=== PATIENT | female | born 1990 | race African-American/Black ===

== ENCOUNTER 2024-03-02 00:31 | Emergency (ER) | payer OTHER, SELFPAY ==
[2024-03-02 00:44] VITALS: BP 124/86; PULSE 104; RESP 15; TEMP 36.7; O2SAT 97
[2024-03-02 01:01] LABS: Basophils Percent Auto 0.2 % (0.2-1.2); Eosinophils Percent Auto 0.4 % (0-4.4); Hematocrit 36.2 % (37.0-47.0); Hemoglobin 13.5 g/dL (12.0-15.0); Immature Granulocyte Absolute 0.01 K/mm3 (0.00-0.031); Immature Granulocyte Percent A 0.2 % (0-0.5); Lymphocytes Absolute Auto 1.92 K/mm3 (0.9-3.2); Mean Corpuscular HGB Conc 37.3 g/dl (32-36); Mean Corpuscular Hemoglobin 31.8 pg (26-34); Mean Corpuscular Volume 85.2 fl (80-100); Mean Platelet Volume 9.4 fl (7.4-10.4); Monocytes Absolute Auto 0.3 K/mm3 (0.1-0.6); Monocytes Percent Auto 6.5 % (2.6-8.5); Neutrophils Absolute Auto 2.6 K/mm3 (1.3-6.7); Neutrophils Percent Auto 53.7 % (45.5-73.1); Platelet Count Result 303 k/mm3 (150-375); Red Blood Count 4.25 M/mm3 (4.2-5.4); Red Cell Distribution Width 16.3 % (11.5-14.5); White Blood Count 4.9 K/mm3 (4.5-10.0)
[2024-03-02 01:11] LABS: Alanine Aminotransferase 10 U/L (6-35); Albumin Level 4.7 g/dL (3.5-5.1); Alkaline Phosphatase 87 U/L (38-126); Anion Gap 14 mmol/L (4-12); Aspartate Amino Transferase 24 U/L (14-36); Bilirubin,Total 0.6 mg/dL (0.2-1.3); Blood Urea Nitrogen 5 mg/dL (7-17); Calcium 8.8 mg/dL (8.4-10.2); Carbon Dioxide 22 mmol/L (22-30); Chloride 108 mmol/L (98-107); Estimated CRCL calculation 110 ml/min; Estimated Glomerular Filt Rate > 60; Glucose 104 mg/dL (65-110); Potassium 3.9 mmol/L (3.4-5.0); Sodium 144 mmol/L (137-145)
--- NOTE | 2024-03-02 01:22 | ED.GENADULT ---
HPI - General Adult General Chief complaint: Psychiatric Symptoms Stated complaint: psych Time Seen by Provider: 03/02/24 01:19 History of Present Illness HPI narrative: Patient is a 33-year-old female who presents the emergency department this evening complaining of suicidal thoughts and admits that she is going through a lot at home. Patient states that her older brother approximately 5 months ago and she has not been taking it very well. Patient used to drink alcohol excessively and quit approximately 1 and recently relapsed due to all of the stress that she is going through. Patient does have a friend with her in the emergency department in the friend did state that the patient has voiced multiple suicidal thoughts in the past including wanting to drive her car off a roge. Patient does admit that these are mainly coping mechanism and she never intentionally wanted to kill herself that she just gets extremely overwhelmed and sad and understands that something needs to be done about this so that she does not have these thoughts anymore. Patient has tried to cut herself in the but other than that has not attempted any additional suicide attempts. Patient is tearful during my initial assessment. She admits that she is not taking any medications for anxiety or depression but believes that she should probably be on something. Patient admits that she has been drinking today and states that her blood alcohol level may return back elevated. She is currently denying any additional symptoms or concerns at this time. Related Data Allergies Allergy/AdvReac Type Severity Reaction Status Date / Time No Known Allergies Allergy Verified 03/02/24 00:54 Review of Systems Review of Systems: All systems are reviewed and are negative unless stated otherwise in the HPI. [facility] Social History Social History Substance use type: marijuana Exam Narrative: General: Alert, awake, afebrile, in no acute distress. HEENT: PERRL, no rhinorrhea, no post nasal drip, oropharynx clear. Cardiovascular: Regular rate and rhythm, no murmurs, rubs or gallops, no peripheral edema. Respiratory: Clear to auscultation bilaterally, no tachypnea, no wheezing, no rhonchi, no rubs, no respiratory distress. Abdomen: Soft, nontender, nondistended, no rebound, no guarding, no peritoneal signs. Musculoskeletal: No joint swelling or deformity, normal muscle tone. Skin: No rashes or petechia, no signs of infection. Psychiatric: Sad and tearful, cooperative, answering all my questions appropriately, non combative. Neurological: Alert and oriented to person, place, and time. Follows all commands. No focal deficits, speech is clear and fluent. Course Vital Signs Vital signs: Vital Signs Temperature 98.1 F 03/02/24 00:44 Pulse Rate 104 H 03/02/24 00:44 Respiratory Rate 15 03/02/24 00:44 Blood Pressure 124/86 03/02/24 00:44 Pulse Oximetry 97 03/02/24 00:44 Oxygen Delivery Room Air 03/02/24 00:44 Temperature 98.1 F 03/02/24 00:44 Pulse Rate 104 H 03/02/24 00:44 Respiratory Rate 15 03/02/24 00:44 Blood Pressure 124/86 03/02/24 00:44 Pulse Oximetry 97 03/02/24 00:44 Oxygen Delivery Room Air 03/02/24 00:44 Medical Decision Making MDM Narrative Medical decision making narrative: The patient was evaluated by myself in the emergency department. History is obtained from patient who is an independent historian and physical exam was performed. External medical records were reviewed at this time. IV was established and pertinent tests were ordered. Laboratory results obtained revealing a blood alcohol level of 340. Remainder of the patient's blood work was unremarkable. Urinalysis and urine drug screen currently pending. Differential diagnosis considerations include suicidal ideation, homicidal ideation, depression, anxiety, acute psychosis. Comorbidities impacti
[2024-03-02 01:29] LABS: Ethanol 340 mg/dL (<10)
[2024-03-02 01:37] LABS: Influenza A QL RT-PCR Negative (Negative); Influenza B QL RT-PCR Negative (Negative); RSV RNA, RT-PCR Negative (Negative); SARS-CoV-2 RNA PCR Negative (Negative)
[2024-03-02 01:51] LABS: Thyroid Stimulating Hormone Reflex 0.308 uIU/mL (0.465-4.68)
[2024-03-02 03:20] LABS: Total Triiodothyronine (T3) 0.99 NG/ML (0.97-1.69)
[2024-03-02 08:17] VITALS: BP 119/81; PULSE 85; RESP 16; TEMP 36.6; O2SAT 96
[2024-03-02 08:36] LABS: Amphetamine Screen Urine Negative (Negative); Barbiturate Screen Urine Negative (Negative); Benzodiazepines Screen Urine Negative (Negative); Cannabinoid Screen Urine Positive (Negative); Cocaine Screen Urine Negative (Negative); Methadone Screen Urine Negative (Negative); Opiate Screen Urine Negative (Negative); Phencyclidine Screen Urine Negative (Negative)
[2024-03-02 09:02] LABS: Appearance Urine Cloudy (Clear); Bacteria Urine 2+ /hpf; Bilirubin Urine Negative (Negative); Blood Urine Negative (Negative); Color Urine Yellow (Yellow); Glucose Urine UA Negative (Negative); Ketones Urine Trace mg/dL (Negative); Leukocyte Esterase Ur 2+ LEU/UL (Negative); Need Manual Microscopic Reviewed; Nitrate Urine Negative (Negative); Non Pathogenic Casts 0-2; Protein Urine Negative (Negative); RBC Urine 0-2 /hpf (0-2); Specific Grav Ur 1.009 (1.001-1.035); Squamous Epithelial Cell Urine Moderate /hpf (Few); Urobilinogen Urine 0.2 mg/dL (<2.0); WBC Urine 21-50 /hpf (0-3); pH Urine 5.5 (5.0-9.0)
[2024-03-02 09:06] LABS: Add Urine Microscopic? YES
[2024-03-02] MEDS: CEPHALEXIN 500 MG CAPSULE PO (09:25)
[2024-03-02 14:02] LABS: Ethanol 58 mg/dL (<10)
[2024-03-02 16:28] VITALS: BP 105/83; PULSE 82; RESP 18; O2SAT 99
== END 2024-03-02 17:20 | disposition home or self-care (01) ==
PROVIDERS: Emergency Medicine; Emergency Provider Emergency Medicine
DX: F32.A Depression, unspecified (principal); R45.851 Suicidal ideations; Z11.52 Encounter for screening for COVID-19
CPT/HCPCS: 36415; 80053; 80307; 81001; 81025; 84439; 84443; 84480; 85025; 87086; 87088; 87637; 99284; A9270

== ENCOUNTER 2024-05-27 12:58 | Emergency (ER) | payer OTHER, SELFPAY ==
[2024-05-27] VITALS (7 sets, daily range): BP systolic 110–140; BP diastolic 68–100; PULSE 58–79; RESP 16–20; TEMP 36.4–37.1; O2SAT 97–100
--- NOTE | ~2024-05-27 | CT_ITS ---
EXAMINATION: CT abdomen pelvis w con DATE: 05/27/2024 16:03 INDICATION: Nausea and vomiting. Abdominal pain. TECHNIQUE: Computed tomography (CT) of the abdomen and pelvis was performed with 100 mL Omnipaque 350 intravenous contrast. Automated exposure control and iterative reconstruction technique were employe d. The dose-length product was 794.36 mGy-cm. COMPARISON: CT abdomen and pelvis 11/16/2016 FINDINGS: The visualized portions of the lung bases are clear without pneumonia or pleural effusion. The heart size is normal. No pericardial effusion. The liver, gallbladder, spleen, pancreas, adrenal glands, and kidneys are normal. There are no dilated loops of bowel. The appendix is normal. There is a 5.1 cm mass in right ovary. There are no pathologically enlarged lymph nodes. There is no free int raperitoneal fluid. There is severe lower lumbar spondylosis. IMPRESSION: 1. 5.1 cm mass in right ovary, which may be a hemorrhagic cyst. Neoplasm is not excluded. Torsion is not excluded. Pelvis ultrasound is recommended. Reviewed, dictated and finalized at location A.
--- NOTE | ~2024-05-27 | XR_ITS ---
XR chest 2V DATE: 05/27/2024 15:12 INDICATION: Cough, sore throat for 2 days. Smoker. TECHNIQUE: 2 views COMPARISON: None FINDINGS: Normal heart size. No hilar or mediastinal enlargement. No pulmonary infiltrate or consol idation, pulmonary vascular congestion or pleural effusion or pneumothorax. Included skeletal structures unremarkable. IMPRESSION: Negative Reviewed, dictated and finalized at location A. IMPRESSION: Negative
--- NOTE | ~2024-05-27 | US_ITS ---
US pelvic complete DATE: 05/27/2024 18:02 INDICATION: Abdominal pain, nausea and vomiting. 5.1 cm mass of right ovary demonstrated on 05/27/2024 CT abdomen pelvis examination TECHNIQUE: Real-time and color flow imaging and Doppler analysis of the pelvis COMPARISON: 05/27/2024 CT abdomen pelvis FINDINGS: The uterus measures 7 cm sagittal dimension, 4.6 cm AP and 5.4 cm transverse dimension. Central endometrial echo complex measures 9 mm AP dimension. Right ovary measures 3.3 x 3.2 x 2.3 cm. Approximately 5.6 x 3.8 x 3.5 cm hypoechoic mass or more likely complicated cyst with through transmi ssion and posterior enhancement is noted at the right ovary/right adnexal area. The right ovarian arterial Doppler shows elevated peak systolic velocity and minimal diastolic flow c ompared to the normal low amplitude systolic and diastolic waveform of the left ovary. Ovarian torsio n should be considered. Left ovary measures 2.8 x 2.0 x 3 cm dimension, with normal low amplitude systolic and diastolic vasc ular flow. Probable 1-1.5 cm left ovarian cyst. IMPRESSION: 5.6 x 3.8 x 3.5 cm complicated cyst at the right ovary/adnexal area, with asymmetric high amplitude systolic and no diastolic flow the right ovary, suggesting possible right ovarian torsion Reviewed, dictated and finalized at Location [facility]. Reviewed, dictated and finalized at location A. IMPRESSION: 5.6 x 3.8 x 3.5 cm complicated cyst at the right ovary/adnexal area , with asymmetric high amplitude systolic and no diastolic flow the right ovary , suggesting possible right ovarian torsion
[2024-05-27 14:54] LABS: Basophils Percent Auto 0.3 % (0.2-1.2); Hematocrit 36.7 % (37.0-47.0); Hemoglobin 13.5 g/dL (12.0-15.0); Immature Granulocyte Absolute 0.03 K/mm3 (0.00-0.031); Immature Granulocyte Percent A 0.3 % (0-0.5); Lymphocytes Absolute Auto 1.39 K/mm3 (0.9-3.2); Mean Corpuscular HGB Conc 36.8 g/dl (32-36); Mean Corpuscular Hemoglobin 33.8 pg (26-34); Mean Corpuscular Volume 91.8 fl (80-100); Mean Platelet Volume 9.8 fl (7.4-10.4); Monocytes Absolute Auto 0.6 K/mm3 (0.1-0.6); Monocytes Percent Auto 6.6 % (2.6-8.5); Neutrophils Absolute Auto 7.2 K/mm3 (1.3-6.7); Neutrophils Percent Auto 77.8 % (45.5-73.1); Nucleated Red Blood Cells Perc 0.2 % (0.0-0.2); Platelet Count Result 297 k/mm3 (150-375); Red Cell Distribution Width 15.5 % (11.5-14.5); White Blood Count 9.3 K/mm3 (4.5-10.0)
[2024-05-27 15:03] LABS: INR 1.1; Prothrombin Time 14.9 Seconds (11.1-14.7)
--- NOTE | 2024-05-27 15:03 | ED.URI ---
HPI - URI/Sore Throat General Chief Complaint: Upper Respiratory Infection Stated Complaint: ST, cough, vomiting blood Time Seen by Provider: 05/27/24 14:31 Source: patient Mode of arrival: ambulatory Limitations: no limitations History of Present Illness HPI Narrative: Patient is a 33 y/o female who presents to the ED with c/o N/V. Patient reports she drinks daily, at least 8-10 shots of hard liquor daily. She states she drank more than usual on Tuesday and has had N/V since then. Reports she has been unable to keep down any food or drink over the last couple days. States she was vomiting so hard yesterday that she had bits of blood in her emesis towards the end. She does still feel nauseous currently. Reports diffuse abdominal pain, cough, congestion, sore throat, subjective fevers. Patient has been to rehab/detox previously. She is currently on the waitlist at [facility] to get back into rehab. She is interested in quitting drinking. Denies hx of WD sx's/WD sz. Related Data Allergies Allergy/AdvReac Type Severity Reaction Status Date / Time No Known Allergies Allergy Verified 05/27/24 13:26 Review of Systems Review of Systems: All systems reviewed & are unremarkable except as noted in HPI. All systems reviewed & are unremarkable except as noted in HPI and below PMFSH Social History Social History (Updated 05/27/24 @ 15:09 by Laura Shell PA-C) Alcohol intake: current Alcohol use details: 8-10 shots of liquor per day Substance use type: marijuana Exam Narrative: GENERAL: Well appearing, obese with BMI of 30.7, non-toxic, in no acute distress. HEAD: Normocephalic, atraumatic. ENT: Minimal posterior pharynx erythema. No tonsillar hypertrophy or exudate. Uvula is nonedematous and midline. RESPIRATORY: Airway patent, respirations nonlabored. Clear to auscultation bilaterally, no rales, rhonchi, wheezing. no focal lung sounds. CARDIOVASCULAR: Regular rate and rhythm without murmurs, rubs, or gallops. ABDOMINAL: Soft, TTP in RLQ and diffusely throughout epigastric region, no rebound, nondistended. Normoactive BS. MUSCULOSKELETAL: Moves all extremities. No gross deformities. SKIN: Warm, dry, normal color. NEURO: A&O X3. Speech clear. Cranial nerves II-XII grossly intact. Steady gait. No ataxic movements. PSYCHIATRIC: Appropriate mood and affect. Normal interaction. Course Vital Signs Vital signs: Vital Signs Temperature 97.5 F L 05/27/24 13:23 Pulse Rate 73 05/27/24 13:23 Respiratory Rate 16 05/27/24 13:23 Blood Pressure 138/92 H 05/27/24 13:23 Pulse Oximetry 100 05/27/24 13:23 Oxygen Delivery Room Air 05/27/24 13:23 Temperature 98.8 F 05/27/24 19:25 Pulse Rate 70 05/27/24 19:25 Respiratory Rate 20 05/27/24 19:25 Blood Pressure 125/81 05/27/24 19:25 Pulse Oximetry 100 05/27/24 19:25 Oxygen Delivery Room Air 05/27/24 15:01 MDM - URI/Sore Throat MDM Narrative Medical decision making narrative: Patient presented to ED with nausea, vomiting, hematemesis, URI sx's, history of daily ETOH use. Vital signs are stable upon arrival. Patient is in no acute distress. No evidence of hemodynamic instability. Cbc without leukocytosis. H&H is stable. Consistent with previous records. Platelets within normal limits. CMP fairly unremarkable. Does shows anion gap of 16. Fluids ongoing. Stable electrolytes. Stable kidney function. Total bilirubin mildly elevated to 2.4, though remainder of LFTs are within normal limits. Lipase WNL. D-dimer WNL. Strep, influenza, COVID, RSV negative. ETOH level negative. Patient reports last drink was on Tuesday night. She denies hx of WD sx's. No evidence of active ETOH withdrawal currently. CT abd/pelvis obtained and showing large masslike structure in right ovary, recommended pelvic ultrasound. No other significant abnormalities noted on CT scan. No evidence of gastritis though this is my clinical suspicion. Darryn
[2024-05-27 15:04] LABS: Partial Thromboplastin Time 31.9 Seconds (22.3-36.8)
[2024-05-27 15:08] LABS: Alanine Aminotransferase 11 U/L (6-35); Albumin Level 4.8 g/dL (3.5-5.1); Alkaline Phosphatase 82 U/L (38-126); Anion Gap 16 mmol/L (4-12); Aspartate Amino Transferase 32 U/L (14-36); Bilirubin,Total 2.4 mg/dL (0.2-1.3); Blood Urea Nitrogen 7 mg/dL (7-17); Calcium 9.2 mg/dL (8.4-10.2); Carbon Dioxide 27 mmol/L (22-30); Chloride 93 mmol/L (98-107); Estimated CRCL calculation 129 ml/min; Estimated Glomerular Filt Rate > 60; Glucose 96 mg/dL (65-110); Magnesium 1.6 mg/dL (1.6-2.3); Potassium 3.4 mmol/L (3.4-5.0); Sodium 136 mmol/L (137-145)
[2024-05-27 15:09] LABS: D Dimer < 0.27 ug/mL (<0.48)
[2024-05-27 15:18] LABS: Strep Group A RT-PCR NOT DETECTED (Negative)
[2024-05-27 15:29] LABS: Influenza A QL RT-PCR Negative (Negative); Influenza B QL RT-PCR Negative (Negative); RSV RNA, RT-PCR Negative (Negative); SARS-CoV-2 RNA PCR Negative (Negative)
[2024-05-27] MEDS: SODIUM CHLORIDE 0.9% IV 1,000 ML 999 ML IV CONT ×2 (15:33→18:57)
[2024-05-27] MEDS: ONDANSETRON INJ 4 MG/2 ML VIAL IV PUSH (15:36)
[2024-05-27] MEDS: PANTOPRAZOLE SODIUM IV 40 MG VIAL IV PUSH (15:36)
[2024-05-27 15:46] LABS: Lipase 21 U/L (23-300)
[2024-05-27 15:47] LABS: Ethanol < 10 mg/dL (<10)
[2024-05-27] MEDS: THIAMINE HCL 200 MG/2 ML VIAL 100 MG IV PUSH (16:14)
[2024-05-27] MEDS: MAGNESIUM SULF 1 GM/D5W 100 ML 1 GM/100 ML BAG IVPB (16:15)
[2024-05-27] MEDS: BELLADONNA ALK/PHENOB ELIX 10 ML, MAG HYDROX/ALUMINUM HYD/SIMETH 30 ML, LIDOCAINE HCL 2... PO (18:57)
== END 2024-05-27 21:15 | disposition home or self-care (01) ==
PROVIDERS: Emergency Provider Physician Assistant
DX: K29.20 Alcoholic gastritis without bleeding (principal); R11.2 Nausea with vomiting, unspecified; N83.201 Unspecified ovarian cyst, right side; F10.10 Alcohol abuse, uncomplicated; Z20.822 Contact with and (suspected) exposure to COVID-19
CPT/HCPCS: 36415; 71046; 74177; 76856; 80053; 80307; 83690; 83735; 85025; 85380; 85610; 85730; 87637; 87651; 96361; 96365; 96375; 99284; A9270; J2405; J2470; J3411; J3475; J7030; Q9967

== ENCOUNTER 2025-04-20 03:31 | Emergency (ER) | payer OTHER, SELFPAY ==
[2025-04-20 03:34] VITALS: BP 120/86; PULSE 82; RESP 17; TEMP 36.4; O2SAT 100
--- NOTE | 2025-04-20 03:49 | ECG_ITS ---
Test Date: 2025-04-20 04:02:55 Measurements Intervals [place] Rate: 66 P: 72 NC: 140 QRS: 22 QRSD: 78 T: 57 QT: 407 QTc: 428 Interpretive Statements SINUS RHYTHM LOW QRS VOLTAGE IN PRECORDIAL LEADS BASELINE ARTIFACT- I, II, III, AVR, AVL, AVF, V1-V6 BORDERLINE ECG No previous ECG available for comparison Electronically Signed On 04-20-2025 07:43:00 CDT by French Briceno D.O.
[2025-04-20] MEDS: LORazepam INJ (*CRX) 2 MG/ML VIAL 1 MG IV PUSH (03:57)
--- NOTE | 2025-04-20 04:15 | PC.NURSE ---
Patient now breathing normally, speaking in full sentences and A/Ox4.
[2025-04-20 04:34] LABS: Hematocrit 34.7 % (37.0-47.0); Hemoglobin 12.5 g/dL (12.0-15.0); Immature Granulocyte Percent A 0.3 % (0-0.5); Lymphocytes Absolute Auto 2.20 K/mm3 (0.9-3.2); Mean Corpuscular HGB Conc 36.0 g/dl (32-36); Mean Corpuscular Hemoglobin 29.8 pg (26-34); Mean Corpuscular Volume 82.8 fl (80-100); Nucleated Red Blood Cells Absolute Auto 0.000 K/mm3 (0.0-0.012); Nucleated Red Blood Cells Perc 0.0 % (0.0-0.2); Platelet Count Result 222 k/mm3 (150-375); Red Blood Count 4.19 M/mm3 (4.2-5.4); White Blood Count 3.7 K/mm3 (4.5-10.0)
[2025-04-20 04:46] LABS: Alanine Aminotransferase 15 U/L (6-35); Albumin Level 3.9 g/dL (3.5-5.1); Alkaline Phosphatase 60 U/L (38-126); Anion Gap 9 mmol/L (4-12); Aspartate Amino Transferase 39 U/L (14-36); Bilirubin,Total 0.2 mg/dL (0.2-1.3); Calcium 8.2 mg/dL (8.4-10.2); Carbon Dioxide 22 mmol/L (22-30); Chloride 108 mmol/L (98-107); Estimated Glomerular Filt Rate > 60; Glucose 96 mg/dL (65-110); Potassium 4.1 mmol/L (3.4-5.0); Sodium 139 mmol/L (137-145); Total Protein 6.9 g/dL (6.3-8.2)
--- OUTSIDE RECORDS SUMMARY | 2025-04-20 05:08 | XMS_ITS | Continuity of Care Document ---
Author Organization [facility] Address [address] [place] [address] [facility] [address] [place] [address] Phone Care Team Providers Care Edge Polisher Name Role Phone Brittany Rapp Unavailable Unavailable Advance Directives Directive Yes / No Effective Date File Name No Information Encounters Encounter Description Practice Location Reason(s) For Visit Diagnoses Date Provider Providers Copied on Encounter [facility], [address] [place] [address] [address], [place], [place], [id number], [place] tel:[phone] [facility] No Information Dec-0 8-199 9 Tamela Soto. [address] , [address], [place], [address], [place]. tel:[phone] Family History Family Member Type Diagnosis Age At Onset No Information Payers Payer name Insurance type Covered democrat ID Authoriza tion(s) No Information Social History Type Description Quantity Date Captured Comments Sex Female Smoking Status No Information Chief Complaint And Reason For Visit No Information Reason For Referral Reason For Referral No Information History Of Present Illness Encounter Date Complaint History Of Prese nt Illness No Information Functional Status Date Functional Assessmen t No Information Instructions Date Instruction Additional Infor mation No Information Assessments Type Assessment Date No Information Patient Care Teams Name Effective Dates (start - stop) Status Members No Information
[2025-04-20 05:15] LABS: Blood Urea Nitrogen < 2 mg/dL (7-17)
[2025-04-20 05:21] VITALS: BP 122/84; PULSE 74; RESP 17; O2SAT 100
[2025-04-20 05:27] LABS: Cannabinoid Screen Urine Positive (Negative)
--- NOTE | 2025-04-20 05:33 | ED_ITS ---
HPI - General Adult General Chief complaint: Unspecified Stated complaint: HYPERVENTILATING, LEG & FOOT PAIN Time Seen by Provider: 04/20/25 03:50 History of Present Illness HPI narrative: Patient states that she was about to watch [employer]'s [employer], then she started over thinking, and then started panicking and feeling like she can not breathe and could not move her body. She could not even get her phone to call EMS. She has had panic attacks in the past. Related Data Allergies Allergy/AdvReac Type Severity Reaction Status Date / Time No Known Allergies Allergy Verified 05/27/24 13:26 Review of Systems 2 Review of Systems: All systems reviewed & are unremarkable except as noted in HPI and below [facility] Social History Social History (Updated 05/27/24 @ 15:09 by Laura Shell PA-C) Alcohol intake: current Alcohol use details: 8-10 shots of liquor per day Substance use type: marijuana Exam 2 Narrative: EXAMINATION OF ORGAN SYSTEMS/BODY AREAS: Constitutional: Vital signs per nursing GENERAL: Anxious HEAD: Normal with no signs of head trauma. EYES: EOMI, conjunctiva normal ENT: Hearing grossly intact LUNGS: Nonlabored breathing. HEART: [Regular rate and rhythm] ABD: [Soft], [nontender to palpation] EXT: Normal range of motion SKIN: [No rashes or lesions.] NEURO: [Alert and oriented x 3. No gross focal sensory or strength deficits.] PSYCH: Anxious affect Course Vital Signs Vital signs: Vital Signs Temperature 97.6 F 04/20/25 03:34 Pulse Rate 82 04/20/25 03:34 Respiratory Rate 17 04/20/25 03:34 Blood Pressure 120/86 04/20/25 03:34 Pulse Oximetry 100 04/20/25 03:34 Oxygen Delivery Room Air 04/20/25 03:34 Temperature 97.6 F 04/20/25 03:34 Pulse Rate 74 04/20/25 05:21 Respiratory Rate 17 04/20/25 05:21 Blood Pressure 122/84 04/20/25 05:21 Pulse Oximetry 100 04/20/25 05:21 Oxygen Delivery Room Air 04/20/25 03:34 Medical Decision Making [facility] Narrative Medical decision making narrative: Patient with history of anxiety/panic attacks presenting here with symptoms consistent with panic attack. On exam patient is anxious appearing. I will obtain EKG and chest xray to rule out arrhythmia/ischemia, pneumothorax, or other cause of chest discomfort/shortness of breath. Chest x-ray on my independent interpretation does not show any acute abnormality, no pneumothorax or consolidation. EKG - 12-Lead: Performed at 0402. Interpreted by me. [Sinus rhythm]. Rate 66. [Normal] axis. OK-interval [normal]. QRS duration [normal]. QTc [normal]. [No ST segment elevation or depression]. [T-wave normal]. Impression: No EKG evidence of acute ischemia or dysrhythmia. On reevaluation patient is feeling better, resting comfortably, vital signs now stable. I do feel patient is stable for discharge home at this time with followup to their doctor, and return here if symptoms return or worsen. Agreeable to outpatient management. Vital Signs Vital Signs: Vital Signs Temperature 97.6 F 04/20/25 03:34 Pulse Rate 82 04/20/25 03:34 Respiratory Rate 17 04/20/25 03:34 Blood Pressure 120/86 04/20/25 03:34 Pulse Oximetry 100 04/20/25 03:34 Oxygen Delivery Room Air 04/20/25 03:34 Temperature 97.6 F 04/20/25 03:34 Pulse Rate 74 04/20/25 05:21 Respiratory Rate 17 04/20/25 05:21 Blood Pressure 122/84 04/20/25 05:21 Pulse Oximetry 100 04/20/25 05:21 Oxygen Delivery Room Air 04/20/25 03:34 Lab Data 04/20/25 04:20 04/20/25 04:20 Labs: Lab Results 04/20/25 04/20/25 Range/Units 04:20 04:57 WBC 3.7 L (4.5-10.0) K/mm3 RBC 4.19 L (4.2-5.4) M/mm3 Hgb 12.5 (12.0-15.0) g/dL Hct 34.7 L (37.0-47.0) % MCV 82.8 (80-100) fl MCH 29.8 (26-34) pg MCHC 36.0 (32-36) g/dl RDW 16.5 H (11.5-14.5) % Plt Count 222 (150-375) k/mm3 MPV 9.8 (7.4-10.4) fl Immature Gran % (Auto) 0.3 (0-0.5) % Neut % (Auto) 33.9 L (45.5-73.1) % Lymph % (Auto) 59.3 H (18.3-44.2) % [place] % (Auto) 4.3 (2.6-8.5) % Eos % (Auto) 1.9 (0-4.4) % Baso % (Auto) 0.3 (0.2-1.2) % Lymph # (Auto) 2.20 (0.9-3.2) K/mm3 [place] # (Auto) 0.2 (0.1-0.6) K/mm3 Eos # (Auto) 0.1 (0-0.3) K/mm3 Baso # (Auto) 0.0 (0.0-0.1) K/mm3 Abs Immat Gran (auto) 0.01 (0.00-0.031) K/mm3 Absolute Neuts (auto) 1.3 (1.3-6.7) K/mm3 Absolute Nucleated RBC 0.000 (0.0-0.012) K/mm3 Nucleated RBC % 0.0 (0.0-0.2) % Sodium 139 (137-145) mmol/L Potassium 4.1 (3.4-5.0) mmol/L Chloride 108 H (98-107) mmol/L Carbon Dioxide 22 (22-30) mmol/L Anion Gap 9 (4-12) mmol/L BUN < 2 L (7-17) mg/dL Creatinine 0.55 L (0.7-1.0) mg/dL Estim Creat Clear Calc Not Reportable Estimated GFR > 60 (59 - ) Glucose 96 (65-110) mg/dL Calcium 8.2 L (8.4-10.2) mg/dL Total Bilirubin 0.2 (0.2-1.3) mg/dL AST 39 H (14-36) U/L ALT 15 (6-35) U/L Alkaline Phosphatase 60 (38-126) U/L Total Protein 6.9 (6.3-8.2) g/dL Albumin 3.9 (3.5-5.1) g/dL Urine Opiates Screen Negative (Negative) Urine Methadone Screen Negative (Negative) Ur Barbiturates Screen Negative (Negative) Ur Phencyclidine Scrn Negative (Negative) Ur Amphetamine Screen Negative (Negative) U Benzodiazepines Scrn Negative (Negative) Urine Cocaine Screen Negative (Negative) U Cannabinoids Screen Positive A (Negative) Discharge Plan Discharge Clinical Impression: Panic attack Patient Disposition: Home Condition: Stable Instructions: Panic Attack (ED) Additional Instructions: Please follow up with primary care doctor or with mental health services, you can always return for any further issues. Patient Language: Yoruba Prescriptions: No Action cephalexin 500 mg capsule 500 mg PO Q12H Qty: 14 0RF pantoprazole [Protonix] 40 mg tablet,delayed release (DR/EC) 40 mg PO HS 28 Days Qty: 28 0RF ondansetron 4 mg tablet,disintegrating 4 mg PO Q8H PRN (Reason: nausea and vomiting) Qty: 15 0RF Follow-up/Referrals: Darcy Boothe DO [Physician] - 2 Days PHYSICIAN,TEA AND SPICE SUPERVISOR [Primary Care Provider] -
[2025-04-20 05:49] VITALS: BP 103/70; PULSE 70; RESP 18; O2SAT 99
== END 2025-04-20 05:58 | disposition home or self-care (01) ==
PROVIDERS: Emergency Provider Emergency Medicine
DX: F41.0 Panic disorder [episodic paroxysmal anxiety] (principal); R94.31 Abnormal electrocardiogram [ECG] [EKG]
CPT/HCPCS: 36415; 80053; 80307; 85025; 93005; 96374; 99284; J2060

== ENCOUNTER 2025-05-05 13:50 | Emergency (ER) | payer OTHER, SELFPAY ==
[2025-05-05 13:55] VITALS: BP 154/88; PULSE 109; RESP 18; TEMP 36.6; O2SAT 100
--- NOTE | 2025-05-05 13:55 | ECG_ITS ---
Test Date: 2025-05-05 14:11:42 Measurements Intervals [place] Rate: 96 P: 67 IA: 129 QRS: 41 QRSD: 76 T: 66 QT: 354 QTc: 448 Interpretive Statements SINUS RHYTHM LOW QRS VOLTAGE IN PRECORDIAL LEADS BASELINE ARTIFACT- I, III, AVR, AVL, AVF BORDERLINE ECG Compared to ECG 04/20/2025 04:02:55 No significant changes Electronically Signed On 05-05-2025 14:49:26 CDT by French Briceno D.O.
[2025-05-05 14:10] LABS: Hematocrit 36.3 % (37.0-47.0); Hemoglobin 13.4 g/dL (12.0-15.0); Immature Granulocyte Percent A 0.3 % (0-0.5); Lymphocytes Absolute Auto 1.51 K/mm3 (0.9-3.2); Mean Corpuscular HGB Conc 36.9 g/dl (32-36); Mean Corpuscular Hemoglobin 29.7 pg (26-34); Mean Corpuscular Volume 80.5 fl (80-100); Nucleated Red Blood Cells Absolute Auto 0.000 K/mm3 (0.0-0.012); Nucleated Red Blood Cells Perc 0.0 % (0.0-0.2); Platelet Count Result 275 k/mm3 (150-375); Red Blood Count 4.51 M/mm3 (4.2-5.4); White Blood Count 3.4 K/mm3 (4.5-10.0)
[2025-05-05 14:29] LABS: Alanine Aminotransferase 11 U/L (6-35); Albumin Level 4.5 g/dL (3.5-5.1); Alkaline Phosphatase 84 U/L (38-126); Anion Gap 13 mmol/L (4-12); Aspartate Amino Transferase 33 U/L (14-36); Bilirubin,Total 0.7 mg/dL (0.2-1.3); Blood Urea Nitrogen 6 mg/dL (7-17); Calcium 9.0 mg/dL (8.4-10.2); Carbon Dioxide 21 mmol/L (22-30); Chloride 104 mmol/L (98-107); Estimated Glomerular Filt Rate > 60; Glucose 82 mg/dL (65-110); Potassium 4.3 mmol/L (3.4-5.0); Sodium 138 mmol/L (137-145); Total Protein 8.1 g/dL (6.3-8.2)
--- OUTSIDE RECORDS SUMMARY | 2025-05-05 14:32 | XMS_ITS | Continuity of Care Document ---
Author Organization [facility] Address [address] [place] [address] utive [facility] [address] [place] [address] Phone Care Team Providers Care Biotech Production Specialist Name Role Phone Brittany Rapp Unavailable Unavailable Advance Directives Directive Yes / No Effective Date File Name No Information Encounters Encounter Description Practice Location Reason(s) For Visit Diagnoses Date Provider Providers Copied on Encounter [facility], [address] [place] [address] [address], [place], [place], [id number], [place] tel:[phone] [facility] No Information Dec-0 8-199 9 Tamela Soto. [address] , [address], [place], [address], [place]. tel:[phone] Family History Family Member Type Diagnosis Age At Onset No Information Payers Payer name Insurance type Covered republican ID Authoriza tion(s) No Information Social History [...]
--- NOTE | 2025-05-05 14:39 | ED.PSYCH ---
HPI - Psych General Chief Complaint: Psychiatric Symptoms <Elise Brody PA-C - Last Filed: 05/06/25 09:57> Stated Complaint: SI <Elise Brody PA-C - Last Filed: 05/06/25 09:57> Time Seen by Provider: 05/05/25 14:07 <Elise Brody PA-C - Last Filed: 05/06/25 09:57> Source: patient <Elise Brody PA-C - Last Filed: 05/06/25 09:57> Mode of arrival: EMS <Elise Brody PA-C - Last Filed: 05/06/25 09:57> Limitations: no limitations <Elise Brody PA-C - Last Filed: 05/06/25 09:57> History of Present Illness HPI Narrative: This is a 34 year old female that presents to the ER for suicidal thoughts. Reports she has had worsening depression lately. She has had thoughts of running her car into a pole. Reports she does not want to act on this. She does report history of previous suicide attempts and admission to psychiatric hospital. She does not take any medications for depression/anxiety or currently see a doctor for this. <Elise Brody PA-C - Last Filed: 05/06/25 09:57> Related Data Allergies/Adverse Reactions: Allergies Allergy/AdvReac Type Severity Reaction Status Date / Time No Known Allergies Allergy Verified 05/27/24 13:26 <Elise Brody PA-C - Last Filed: 05/06/25 09:57> Review of Systems Review of Systems: All systems reviewed & are unremarkable except as noted in HPI and below <Elise Brody PA-C - Last Filed: 05/06/25 09:57> PMFSH Social History Social History: Social History (Updated 05/05/25 @ 14:41 by Elise Brody PA-C) Smoking status: Current every day smoker Alcohol intake: current Substance use: current Substance use type: marijuana <Elise Brody PA-C - Last Filed: 05/06/25 09:57> Exam Narrative: GENERAL: Tearful, well-nourished, and in no acute distress. HEAD: Normocephalic, atraumatic. EYES: EOMI. CHEST: No respiratory distress. HEART: Regular rate EXTREMITIES: Normal range of motion. No edema. SKIN: Warm, dry, no rash. NEURO: No focal deficits. Alert and oriented x3. PSYCH: Anxious, tearful <Elise Brody PA-C - Last Filed: 05/06/25 09:57> Course Course Emergency Course: Patient attempted to elope the emergency department, was brought back by security <Elise Brody PA-C - Last Filed: 05/06/25 09:57> Patient attempted to elope the emergency department, was brought back by security. Assume patient care over by previous provider pending psychiatric evaluation. Repeat alcohol level is under 80 and she is medically stable for psychiatric evaluation. Psychiatric crisis team has come to evaluate the patient. Awaiting their discussion and final disposition. Signed out to [facility] physician. <Enrique Florez MD - Last Filed: 05/06/25 07:12> Reevaluation(s) Reevaluation #1: Patient was assessed by Crisis. It has been determined she does not meet inpatient psych criteria. She was given resources and safety plan. She denies any questions or concerns. <Sara Bhardwaj MD - Last Filed: 05/06/25 09:49> Date: 05/06/25 <Sara Bhardwaj MD - Last Filed: 05/06/25 09:49> Time: 09:46 <Sara Bhardwaj MD - Last Filed: 05/06/25 09:49> Vital Signs Vital signs: Vital Signs Temperature 97.9 F 05/05/25 13:55 Pulse Rate 109 H 05/05/25 13:55 Respiratory Rate 18 05/05/25 13:55 Blood Pressure 154/88 H 05/05/25 13:55 Pulse Oximetry 100 05/05/25 13:55 Oxygen Delivery Room Air 05/05/25 13:55 Temperature 97.9 F 05/05/25 13:55 Pulse Rate 88 05/06/25 09:01 Respiratory Rate 16 05/06/25 09:01 Blood Pressure 117/74 05/06/25 09:01 Pulse Oximetry 100 05/06/25 09:01 Oxygen Delivery Room Air 05/05/25 13:55 <Elise Brody PA-C - Last Filed: 05/06/25 09:57> Vital Signs Temperature 97.9 F 05/05/25 13:55 Pulse Rate 109 H 05/05/25 13:55 Respiratory Rate 18 05/05/25 13:55 Blood Pressure 154/88 H 05/05/25 13:55 Pulse Oximetry 100 05/05/25 13:55 Oxygen Delivery Room Air 05/05/25 13:55 Temperature 97.9 F 05/05/25 13:55 Pulse Rate 88 05/06/25 09:01 Respiratory Rate 16 05/06/25 09:01 Blood Pressure 117/74 05/06/25 09:01 Pulse Oximetry 100 05/06/25 09:01 Oxygen Delivery Room Air 05/05/25 13:55 <Enrique Florez MD - Last Filed: 05/06/25 07:12> Vital Signs Temperature 97.9 F 05/05/25 13:55 Pulse Rate 109 H 05/05/25 13:55 Respiratory Rate 18 05/05/25 13:55 Blood Pressure 154/88 H 05/05/25 13:55 Pulse Oximetry 100 05/05/25 13:55 Oxygen Delivery Room Air 05/05/25 13:55 Temperature 97.9 F 05/05/25 13:55 Pulse Rate 88 05/06/25 09:01 Respiratory Rate 16 05/06/25 09:01 Blood Pressure 117/74 05/06/25 09:01 Pulse Oximetry 100 05/06/25 09:01 Oxygen Delivery Room Air 05/05/25 13:55 <Sara Bhardwaj MD - Last Filed: 05/06/25 09:49> MDM - Psych Differential Diagnosis Differential diagnosis: Likely suicidal ideation, depression, drug-induced psychotic disorder and acute anxiety <Elise Brody PA-C - Last Filed: 05/06/25 09:57> Lab Data Attestation: I reviewed the patient's lab results. <Elise Brody PA-C - Last Filed: 05/06/25 09:57> I reviewed the patient's lab results. <Sara Bhardwaj MD - Last Filed: 05/06/25 09:49> Result diagrams: 05/05/25 14:04 05/05/25 14:04 <Elise Brody PA-C - Last Filed: 05/06/25 09:57> Labs: Lab Results 05/05/25 05/05/25 05/05/25 Range/Units 14:04 15:01 15:09 WBC 3.4 L (4.5-10.0) K/mm3 RBC 4.51 (4.2-5.4) M/mm3 Hgb 13.4 (12.0-15.0) g/dL Hct 36.3 L (37.0-47.0) % MCV 80.5 (80-100) fl MCH 29.7 (26-34) pg MCHC 36.9 H (32-36) g/dl RDW 18.6 H (11.5-14.5) % Plt Count 275 (150-375) k/mm3 MPV 9.1 (7.4-10.4) fl Immature Gran % (Auto) 0.3 (0-0.5) % Neut % (Auto) 40.7 L (45.5-73.1) % Lymph % (Auto) 44.8 H (18.3-44.2) % Redwood % (Auto) 13.6 H (2.6-8.5) % Eos % (Auto) 0.3 (0-4.4) % Baso % (Auto) 0.3 (0.2-1.2) % Lymph # (Auto) 1.51 (0.9-3.2) K/mm3 Red[place] # (Auto) 0.5 (0.1-0.6) K/mm3 Eos # (Auto) 0.0 (0-0.3) K/mm3 Baso # (Auto) 0.0 (0.0-0.1) K/mm3 Abs Immat Gran (auto) 0.01 (0.00-0.031) K/mm3 Absolute Neuts (auto) 1.4 (1.3-6.7) K/mm3 Absolute Nucleated RBC 0.000 (0.0-0.012) K/mm3 Nucleated RBC % 0.0 (0.0-0.2) % Sodium 138 (137-145) mmol/L Potassium 4.3 (3.4-5.0) mmol/L Chloride 104 (98-107) mmol/L Carbon Dioxide 21 L (22-30) mmol/L Anion Gap 13 H (4-12) mmol/L BUN 6 L (7-17) mg/dL Creatinine 0.72 (0.7-1.0) mg/dL Estim Creat Clear Calc Not Reportable Estimated GFR > 60 (59 - ) Glucose 82 (65-110) mg/dL Calcium 9.0 (8.4-10.2) mg/dL Total Bilirubin 0.7 (0.2-1.3) mg/dL AST 33 (14-36) U/L ALT 11 (6-35) U/L Alkaline Phosphatase 84 (38-126) U/L Total Protein 8.1 (6.3-8.2) g/dL Albumin 4.5 (3.5-5.1) g/dL TSH 0.350 L (0.465-4.680) uIU/mL Free T4 1.13 (0.78-2.19) ng/dL Total T3 0.92 (0.82-1.58) NG/ML Urine Color Yellow (Yellow) Urine Appearance Cloudy H (Clear) Urine pH 5.5 (5.0-9.0) Ur Specific Baldwin 1.010 (1.001-1.035) Urine Protein Trace (Negative) mg/dL Urine Glucose (UA) Negative (Negative) mg/dL Urine Ketones Trace H (Negative) mg/dL Ur Blood (Man) Trace (Negative) Urine Nitrate Positive H (Negative) Urine Bilirubin Negative (Negative) Urine Urobilinogen 0.2 (<2.0) mg/dL Add Ur Microanalysis Reviewed Leukocyte Esterase Rfl 3+ H (Negative) LLOYD/UL Urine RBC 3-5 H (0-2) /hpf Urine WBC 21-50 H (0-3) /hpf Ur Squamous Epith Cells Many H (Few) /hpf Urine Bacteria 4+ H /hpf Urine Casts 0-2 POC Urine HCG, Qual Negative (Negative) Salicylates < 1.0 L (2-20) mg/dL Urine Opiates Screen Negative (Negative) Urine Methadone Screen Negative (Negative) Acetaminophen < 10 L (10-30) ug/mL Ur Barbiturates Screen Negative (Negative) Ur Phencyclidine Scrn Negative (Negative) Ur Amphetamine Screen Negative (Negative) U Benzodiazepines Scrn Negative (Negative) Urine Cocaine Screen Negative (Negative) U Cannabinoids Screen Positive A (Negative) Ethyl Alcohol 352 H* (<10) mg/dL SARS-CoV-2 RNA (RT-PCR) Negative (Negative) 05/06/25 05/06/25 Range/Units 02:16 05:11 WBC (4.5-10.0) K/mm3 RBC (4.2-5.4) M/mm3 Hgb (12.0-15.0) g/dL Hct (37.0-47.0) % MCV (80-100) fl MCH (26-34) pg MCHC (32-36) g/dl RDW (11.5-14.5) % Plt Count (150-375) k/mm3 MPV (7.4-10.4) fl Immature Gran % (Auto) (0-0.5) % Neut % (Auto) (45.5-73.1) % Lymph % (Auto) (18.3-44.2) % Redwood % (Auto) (2.6-8.5) % Eos % (Auto) (0-4.4) % Baso % (Auto) (0.2-1.2) % Lymph # (Auto) (0.9-3.2) K/mm3 Redwood # (Auto) (0.1-0.6) K/mm3 Eos # (Auto) (0-0.3) K/mm3 Baso # (Auto) (0.0-0.1) K/mm3 Abs Immat Gran (auto) (0.00-0.031) K/mm3 Absolute Neuts (auto) (1.3-6.7) K/mm3 Absolute Nucleated RBC (0.0-0.012) K/mm3 Nucleated RBC % (0.0-0.2) % Sodium (137-145) mmol/L Potassium (3.4-5.0) mmol/L Chloride (98-107) mmol/L Carbon Dioxide (22-30) mmol/L Anion Gap (4-12) mmol/L BUN (7-17) mg/dL Creatinine (0.7-1.0) mg/dL Estim Creat Clear Calc Estimated GFR (59 - ) Glucose (65-110) mg/dL Calcium (8.4-10.2) mg/dL Total Bilirubin (0.2-1.3) mg/dL AST (14-36) U/L ALT (6-35) U/L Alkaline Phosphatase (38-126) U/L Total Protein (6.3-8.2) g/dL Albumin (3.5-5.1) g/dL TSH (0.465-4.680) uIU/mL Free T4 (0.78-2.19) ng/dL Total T3 (0.82-1.58) NG/ML Urine Color (Yellow) Urine Appearance (Clear) Urine pH (5.0-9.0) Ur Specific Baldwin (1.001-1.035) Urine Protein (Negative) mg/dL Urine Glucose (UA) (Negative) mg/dL Urine Ketones (Negative) mg/dL Ur Blood (Man) (Negative) Urine Nitrate (Negative) Urine Bilirubin (Negative) Urine Urobilinogen (<2.0) mg/dL Add Ur Microanalysis Leukocyte Esterase Rfl (Negative) LLOYD/UL Urine RBC (0-2) /hpf Urine WBC (0-3) /hpf Ur Squamous Epith Cells (Few) /hpf Urine Bacteria /hpf Urine Casts POC Urine HCG, Qual (Negative) Salicylates (2-20) mg/dL Urine Opiates Screen (Negative) Urine Methadone Screen (Negative) Acetaminophen (10-30) ug/mL Ur Barbiturates Screen (Negative) Ur Phencyclidine Scrn (Negative) Ur Amphetamine Screen (Negative) U Benzodiazepines Scrn (Negative) Urine Cocaine Screen (Negative) U Cannabinoids Screen (Negative) Ethyl Alcohol 105 39 (<10) mg/dL SARS-CoV-2 RNA (RT-PCR) (Negative) <Elise Brody PA-C - Last Filed: 05/06/25 09:57> Lab Results 05/05/25 05/05/25 05/05/25 Range/Units 14:04 15:01 15:09 WBC 3.4 L (4.5-10.0) K/mm3 RBC 4.51 (4.2-5.4) M/mm3 Hgb 13.4 (12.0-15.0) g/dL Hct 36.3 L (37.0-47.0) % MCV 80.5 (80-100) fl MCH 29.7 (26-34) pg MCHC 36.9 H (32-36) g/dl RDW 18.6 H (11.5-14.5) % Plt Count 275 (150-375) k/mm3 MPV 9.1 (7.4-10.4) fl Immature Gran % (Auto) 0.3 (0-0.5) % Neut % (Auto) 40.7 L (45.5-73.1) % Lymph % (Auto) 44.8 H (18.3-44.2) % Red[place] % (Auto) 13.6 H (2.6-8.5) % Eos % (Auto) 0.3 (0-4.4) % Baso % (Auto) 0.3 (0.2-1.2) % Lymph # (Auto) 1.51 (0.9-3.2) K/mm3 Red[place] # (Auto) 0.5 (0.1-0.6) K/mm3 Eos # (Auto) 0.0 (0-0.3) K/mm3 Baso # (Auto) 0.0 (0.0-0.1) K/mm3 Abs Immat Gran (auto) 0.01 (0.00-0.031) K/mm3 Absolute Neuts (auto) 1.4 (1.3-6.7) K/mm3 Absolute Nucleated RBC 0.000 (0.0-0.012) K/mm3 Nucleated RBC % 0.0 (0.0-0.2) % Sodium 138 (137-145) mmol/L Potassium 4.3 (3.4-5.0) mmol/L Chloride 104 (98-107) mmol/L Carbon Dioxide 21 L (22-30) mmol/L Anion Gap 13 H (4-12) mmol/L BUN 6 L (7-17) mg/dL Creatinine 0.72 (0.7-1.0) mg/dL Estim Creat Clear Calc Not Reportable Estimated GFR > 60 (59 - ) Glucose 82 (65-110) mg/dL Calcium 9.0 (8.4-10.2) mg/dL Total Bilirubin 0.7 (0.2-1.3) mg/dL AST 33 (14-36) U/L ALT 11 (6-35) U/L Alkaline Phosphatase 84 (38-126) U/L Total Protein 8.1 (6.3-8.2) g/dL Albumin 4.5 (3.5-5.1) g/dL TSH 0.350 L (0.465-4.680) uIU/mL Free T4 1.13 (0.78-2.19) ng/dL Total T3 0.92 (0.82-1.58) NG/ML Urine Color Yellow (Yellow) Urine Appearance Cloudy H (Clear) Urine pH 5.5 (5.0-9.0) Ur Specific Baldwin 1.010 (1.001-1.035) Urine Protein Trace (Negative) mg/dL Urine Glucose (UA) Negative (Negative) mg/dL Urine Ketones Trace H (Negative) mg/dL Ur Blood (Man) Trace (Negative) Urine Nitrate Positive H (Negative) Urine Bilirubin Negative (Negative) Urine Urobilinogen 0.2 (<2.0) mg/dL Add Ur Microanalysis Reviewed Leukocyte Esterase Rfl 3+ H (Negative) LLOYD/UL Urine RBC 3-5 H (0-2) /hpf Urine WBC 21-50 H (0-3) /hpf Ur Squamous Epith Cells Many H (Few) /hpf Urine Bacteria 4+ H /hpf Urine Casts 0-2 POC Urine HCG, Qual Negative (Negative) Salicylates < 1.0 L (2-20) mg/dL Urine Opiates Screen Negative (Negative) Urine Methadone Screen Negative (Negative) Acetaminophen < 10 L (10-30) ug/mL Ur Barbiturates Screen Negative (Negative) Ur Phencyclidine Scrn Negative (Negative) Ur Amphetamine Screen Negative (Negative) U Benzodiazepines Scrn Negative (Negative) Urine Cocaine Screen Negative (Negative) U Cannabinoids Screen Positive A (Negative) Ethyl Alcohol 352 H* (<10) mg/dL SARS-CoV-2 RNA (RT-PCR) Negative (Negative) 05/06/25 05/06/25 Range/Units 02:16 05:11 WBC (4.5-10.0) K/mm3 RBC (4.2-5.4) M/mm3 Hgb (12.0-15.0) g/dL Hct (37.0-47.0) % MCV (80-100) fl MCH (26-34) pg MCHC (32-36) g/dl RDW (11.5-14.5) % Plt Count (150-375) k/mm3 MPV (7.4-10.4) fl Immature Gran % (Auto) (0-0.5) % Neut % (Auto) (45.5-73.1) % Lymph % (Auto) (18.3-44.2) % [place] % (Auto) (2.6-8.5) % Eos % (Auto) (0-4.4) % Baso % (Auto) (0.2-1.2) % Lymph # (Auto) (0.9-3.2) K/mm3 [place] # (Auto) (0.1-0.6) K/mm3 Eos # (Auto) (0-0.3) K/mm3 Baso # (Auto) (0.0-0.1) K/mm3 Abs Immat Gran (auto) (0.00-0.031) K/mm3 Absolute Neuts (auto) (1.3-6.7) K/mm3 Absolute Nucleated RBC (0.0-0.012) K/mm3 Nucleated RBC % (0.0-0.2) % Sodium (137-145) mmol/L Potassium (3.4-5.0) mmol/L Chloride (98-107) mmol/L Carbon Dioxide (22-30) mmol/L Anion Gap (4-12) mmol/L BUN (7-17) mg/dL Creatinine (0.7-1.0) mg/dL Estim Creat Clear Calc Estimated GFR (59 - ) Glucose (65-110) mg/dL Calcium (8.4-10.2) mg/dL Total Bilirubin (0.2-1.3) mg/dL AST (14-36) U/L ALT (6-35) U/L Alkaline Phosphatase (38-126) U/L Total Protein (6.3-8.2) g/dL Albumin (3.5-5.1) g/dL TSH (0.465-4.680) uIU/mL Free T4 (0.78-2.19) ng/dL Total T3 (0.82-1.58) NG/ML Urine Color (Yellow) Urine Appearance (Clear) Urine pH (5.0-9.0) Ur Specific Baldwin (1.001-1.035) Urine Protein (Negative) mg/dL Urine Glucose (UA) (Negative) mg/dL Urine Ketones (Negative) mg/dL Ur Blood (Man) (Negative) Urine Nitrate (Negative) Urine Bilirubin (Negative) Urine Urobilinogen (<2.0) mg/dL Add Ur Microanalysis Leukocyte Esterase Rfl (Negative) LLOYD/UL Urine RBC (0-2) /hpf Urine WBC (0-3) /hpf Ur Squamous Epith Cells (Few) /hpf Urine Bacteria /hpf Urine Casts POC Urine HCG, Qual (Negative) Salicylates (2-20) mg/dL Urine Opiates Screen (Negative) Urine Methadone Screen (Negative) Acetaminophen (10-30) ug/mL Ur Barbiturates Screen (Negative) Ur Phencyclidine Scrn (Negative) Ur Amphetamine Screen (Negative) U Benzodiazepines Scrn (Negative) Urine Cocaine Screen (Negative) U Cannabinoids Screen (Negative) Ethyl Alcohol 105 39 (<10) mg/dL SARS-CoV-2 RNA (RT-PCR) (Negative) <Enrique Florez MD - Last Filed: 05/06/25 07:12> Lab Results 05/05/25 05/05/25 05/05/25 Range/Units 14:04 15:01 15:09 WBC 3.4 L (4.5-10.0) K/mm3 RBC 4.51 (4.2-5.4) M/mm3 Hgb 13.4 (12.0-15.0) g/dL Hct 36.3 L (37.0-47.0) % MCV 80.5 (80-100) fl MCH 29.7 (26-34) pg MCHC 36.9 H (32-36) g/dl RDW 18.6 H (11.5-14.5) % Plt Count 275 (150-375) k/mm3 MPV 9.1 (7.4-10.4) fl Immature Gran % (Auto) 0.3 (0-0.5) % Neut % (Auto) 40.7 L (45.5-73.1) % Lymph % (Auto) 44.8 H (18.3-44.2) % [place] % (Auto) 13.6 H (2.6-8.5) % Eos % (Auto) 0.3 (0-4.4) % Baso % (Auto) 0.3 (0.2-1.2) % Lymph # (Auto) 1.51 (0.9-3.2) K/mm3 [place] # (Auto) 0.5 (0.1-0.6) K/mm3 Eos # (Auto) 0.0 (0-0.3) K/mm3 Baso # (Auto) 0.0 (0.0-0.1) K/mm3 Abs Immat Gran (auto) 0.01 (0.00-0.031) K/mm3 Absolute Neuts (auto) 1.4 (1.3-6.7) K/mm3 Absolute Nucleated RBC 0.000 (0.0-0.012) K/mm3 Nucleated RBC % 0.0 (0.0-0.2) % Sodium 138 (137-145) mmol/L Potassium 4.3 (3.4-5.0) mmol/L Chloride 104 (98-107) mmol/L Carbon Dioxide 21 L (22-30) mmol/L Anion Gap 13 H (4-12) mmol/L BUN 6 L (7-17) mg/dL Creatinine 0.72 (0.7-1.0) mg/dL Estim Creat Clear Calc Not Reportable Estimated GFR > 60 (59 - ) Glucose 82 (65-110) mg/dL Calcium 9.0 (8.4-10.2) mg/dL Total Bilirubin 0.7 (0.2-1.3) mg/dL AST 33 (14-36) U/L ALT 11 (6-35) U/L Alkaline Phosphatase 84 (38-126) U/L Total Protein 8.1 (6.3-8.2) g/dL Albumin 4.5 (3.5-5.1) g/dL TSH 0.350 L (0.465-4.680) uIU/mL Free T4 1.13 (0.78-2.19) ng/dL Total T3 0.92 (0.82-1.58) NG/ML Urine Color Yellow (Yellow) Urine Appearance Cloudy H (Clear) Urine pH 5.5 (5.0-9.0) Ur Specific Baldwin 1.010 (1.001-1.035) Urine Protein Trace (Negative) mg/dL Urine Glucose (UA) Negative (Negative) mg/dL Urine Ketones Trace H (Negative) mg/dL Ur Blood (Man) Trace (Negative) Urine Nitrate Positive H (Negative) Urine Bilirubin Negative (Negative) Urine Urobilinogen 0.2 (<2.0) mg/dL Add Ur Microanalysis Reviewed Leukocyte Esterase Rfl 3+ H (Negative) LLOYD/UL Urine RBC 3-5 H (0-2) /hpf Urine WBC 21-50 H (0-3) /hpf Ur Squamous Epith Cells Many H (Few) /hpf Urine Bacteria 4+ H /hpf Urine Casts 0-2 POC Urine HCG, Qual Negative (Negative) Salicylates < 1.0 L (2-20) mg/dL Urine Opiates Screen Negative (Negative) Urine Methadone Screen Negative (Negative) Acetaminophen < 10 L (10-30) ug/mL Ur Barbiturates Screen Negative (Negative) Ur Phencyclidine Scrn Negative (Negative) Ur Amphetamine Screen Negative (Negative) U Benzodiazepines Scrn Negative (Negative) Urine Cocaine Screen Negative (Negative) U Cannabinoids Screen Positive A (Negative) Ethyl Alcohol 352 H* (<10) mg/dL SARS-CoV-2 RNA (RT-PCR) Negative (Negative) 05/06/25 05/06/25 Range/Units 02:16 05:11 WBC (4.5-10.0) K/mm3 RBC (4.2-5.4) M/mm3 Hgb (12.0-15.0) g/dL Hct (37.0-47.0) % MCV (80-100) fl MCH (26-34) pg MCHC (32-36) g/dl RDW (11.5-14.5) % Plt Count (150-375) k/mm3 MPV (7.4-10.4) fl Immature Gran % (Auto) (0-0.5) % Neut % (Auto) (45.5-73.1) % Lymph % (Auto) (18.3-44.2) % [place] % (Auto) (2.6-8.5) % Eos % (Auto) (0-4.4) % Baso % (Auto) (0.2-1.2) % Lymph # (Auto) (0.9-3.2) K/mm3 [place] # (Auto) (0.1-0.6) K/mm3 Eos # (Auto) (0-0.3) K/mm3 Baso # (Auto) (0.0-0.1) K/mm3 Abs Immat Gran (auto) (0.00-0.031) K/mm3 Absolute Neuts (auto) (1.3-6.7) K/mm3 Absolute Nucleated RBC (0.0-0.012) K/mm3 Nucleated RBC % (0.0-0.2) % Sodium (137-145) mmol/L Potassium (3.4-5.0) mmol/L Chloride (98-107) mmol/L Carbon Dioxide (22-30) mmol/L Anion Gap (4-12) mmol/L BUN (7-17) mg/dL Creatinine (0.7-1.0) mg/dL Estim Creat Clear Calc Estimated GFR (59 - ) Glucose (65-110) mg/dL Calcium (8.4-10.2) mg/dL Total Bilirubin (0.2-1.3) mg/dL AST (14-36) U/L ALT (6-35) U/L Alkaline Phosphatase (38-126) U/L Total Protein (6.3-8.2) g/dL Albumin (3.5-5.1) g/dL TSH (0.465-4.680) uIU/mL Free T4 (0.78-2.19) ng/dL Total T3 (0.82-1.58) NG/ML Urine Color (Yellow) Urine Appearance (Clear) Urine pH (5.0-9.0) Ur Specific Baldwin (1.001-1.035) Urine Protein (Negative) mg/dL Urine Glucose (UA) (Negative) mg/dL Urine Ketones (Negative) mg/dL Ur Blood (Man) (Negative) Urine Nitrate (Negative) Urine Bilirubin (Negative) Urine Urobilinogen (<2.0) mg/dL Add Ur Microanalysis Leukocyte Esterase Rfl (Negative) LLOYD/UL Urine RBC (0-2) /hpf Urine WBC (0-3) /hpf Ur Squamous Epith Cells (Few) /hpf Urine Bacteria /hpf Urine Casts POC Urine HCG, Qual (Negative) Salicylates (2-20) mg/dL Urine Opiates Screen (Negative) Urine Methadone Screen (Negative) Acetaminophen (10-30) ug/mL Ur Barbiturates Screen (Negative) Ur Phencyclidine Scrn (Negative) Ur Amphetamine Screen (Negative) U Benzodiazepines Scrn (Negative) Urine Cocaine Screen (Negative) U Cannabinoids Screen (Negative) Ethyl Alcohol 105 39 (<10) mg/dL SARS-CoV-2 RNA (RT-PCR) (Negative) <Sara Bhardwaj MD - Last Filed: 05/06/25 09:49> ECG Data EKG #1: ECG completion date: 05/05/25 <Elise Brody PA-C - Last Filed: 05/06/25 09:57> EKG Interpretation: normal rate, sinus rhythm, no ST changes and normal QT <Elise Brody PA-C - Last Filed: 05/06/25 09:57> Critical Care Time Critical Care Time Critical Care Time: No <GIULIANO Hunt Last Filed: 05/06/25 09:57> Discharge Plan Discharge Clinical Impression: Suicidal ideation, Acute UTI <Elise Brody PA-C - Last Filed: 05/06/25 09:57> Patient Disposition: Home <Elise Brody PA-C - Last Filed: 05/06/25 09:57> Condition: Stable <GIULIANO Hunt Last Filed: 05/06/25 09:57> Instructions: Antibiotic Form, Urinary Tract Infection in Women (ED), Help Prevent Suicide (ED) <GIULIANO Hunt Last Filed: 05/06/25 09:57> Patient Language: Samoan <Elise Brody PA-C - Last Filed: 05/06/25 09:57> Prescriptions: New nitrofurantoin monohyd/m-cryst [Macrobid] 100 mg capsule 100 mg PO Q12H 5 Days Qty: 10 0RF Rx Instructions: must administer with a meal/food No Action cephalexin 500 mg capsule 500 mg PO Q12H Qty: 14 0RF pantoprazole [Protonix] 40 mg tablet,delayed release (DR/EC) 40 mg PO HS 28 Days Qty: 28 0RF ondansetron 4 mg tablet,disintegrating 4 mg PO Q8H PRN (Reason: nausea and vomiting) Qty: 15 0RF <Elise Brody PA-C - Last Filed: 05/06/25 09:57> Follow-up/Referrals: Darcy Boothe DO [Physician] - PHYSICIAN,[employer]CREATION PROGRAMMER [Primary Care Provider] - <Elise Brody PA-C - Last Filed: 05/06/25 09:57>
[2025-05-05 14:46] LABS: SARS-CoV-2 RNA PCR Negative (Negative)
[2025-05-05 14:59] LABS: Thyroid Stimulating Hormone 0.350 uIU/mL (0.465-4.680)
[2025-05-05 15:11] LABS: BEDSIDEPREGUCG Negative (Negative)
[2025-05-05 15:40] LABS: Add Urine Microscopic? YES; Appearance Urine Cloudy (Clear); Glucose Urine UA Negative (Negative); Leukocyte Esterase Ur 3+ LEU/UL (Negative); Need Manual Microscopic Reviewed; Nitrate Urine Positive (Negative); Non Pathogenic Casts 0-2; Specific Grav Ur 1.010 (1.001-1.035)
[2025-05-05 16:46] LABS: Cannabinoid Screen Urine Positive (Negative)
[2025-05-05 17:23] LABS: Free T4 Free Thyroxine 1.13 ng/dL (0.78-2.19)
--- NOTE | 2025-05-05 17:28 | PC.NURSE ---
LEANNE Arriaga, patient requesting to leave. CONRADO Manzo, made aware and to speak with patient.
[2025-05-05 17:52] LABS: Total Triiodothyronine (T3) 0.92 NG/ML (0.82-1.58)
--- NOTE | 2025-05-05 17:57 | PC.NURSE ---
Patient eloped through front door to parking lot. Security called.
[2025-05-05 18:39] LABS: Salicylate < 1.0 mg/dL (2-20)
[2025-05-05 18:40] LABS: Acetaminophen < 10 ug/mL (10-30)
--- NOTE | 2025-05-05 18:49 | PC.NURSE ---
in room resting on cot, no distress. Pt upset because she wants to go home. Belongings secure in locked assigned cabinet
--- NOTE | 2025-05-05 19:06 | PC.NURSE ---
on cot eating sandwich
--- NOTE | 2025-05-05 19:26 | PC.NURSE ---
Assumed care if patient after receiving bedside report from PETER Culver @[phone]
[2025-05-05] MEDS: SODIUM CHLORIDE 0.9% IV 1,000 ML 999 ML IV CONT (21:15)
[2025-05-06] MEDS: NITROFURANTOIN MONOHYD MACROCR 100 MG CAP PO (02:18)
--- NOTE | 2025-05-06 04:05 | PC.NURSE ---
Patient noted to be vomiting, VORB to try ODT 4mg zofran. Med given.
[2025-05-06] MEDS: ONDANSETRON HCL ODT 4 MG TABLET (04:10)
[2025-05-06] MEDS: ONDANSETRON INJ 4 MG/2 ML VIAL IV PUSH (05:38)
--- NOTE | 2025-05-06 06:42 | PC.NURSE ---
Crisis here to evaluate patient.
[2025-05-06 09:01] VITALS: BP 117/74; PULSE 88; RESP 16; O2SAT 100
[2025-05-06 10:24] VITALS: BP 136/86; PULSE 91; RESP 15; TEMP 36.6; O2SAT 100
== END 2025-05-06 10:25 | disposition home or self-care (01) ==
PROVIDERS: Emergency Medicine; Student in an Organized Health Care Education/Training Program; Emergency Provider Physician Assistant
DX: R45.851 Suicidal ideations (principal); N39.0 Urinary tract infection, site not specified; Z91.51 Personal history of suicidal behavior; F17.200 Nicotine dependence, unspecified, uncomplicated; Z11.59 Encounter for screening for other viral diseases
CPT/HCPCS: 36415; 80053; 80143; 80179; 80307; 81001; 81025; 82077; 84439; 84443; 84480; 85025; 87635; 93005; 96361; 96374; 99284; A9270; J2405; J7030